=== PATIENT | male | born 1985 | race Asian ===

== ENCOUNTER 2018-02-09 19:03 | Emergency (ER) | payer SELFPAY ==
[~2018-02-09] VITALS: Ht 172.7 cm; Wt 74.8 kg
[2018-02-09 19:10] VITALS: BP_SYST 113
--- NOTE | 2018-02-09 19:10 | NUR ---
Placed in room [address] recording monitor, blood pressure machine and pulse oximeter. To gown for exam. Side rails up. Report given to DIANNE Iverson.
--- NOTE | 2018-02-09 19:25 | NUR ---
Patient came in complaining of back pain. Pt says that it is a possible herniated disc. Patient states that the pain occured about two and a half weeks ago. He said that he tried accupuncture and helped but only temporarily. Patient said that he leaned back on his chair today and when he leaned back he felt his back have a spasm. Patient says he only finds relief when he lays down straight, but when he twist, moves or gets up, the pain is 8/10. Denies n/v/d. No other complaints/injuries noted.
--- NOTE | 2018-02-09 19:30 | NUR ---
ER at bedside examining patient.
[2018-02-09] MEDS ORDERED: HYDROmorphone 1 MG INJ. 1 MG/ML AMPUL IVP ONE (20:45)
[2018-02-09] MEDS ORDERED: DEXAMETHASONE SOD PHOSPHATE 10 MG/ML VIAL IVP ONE (20:45)
[2018-02-09] MEDS ORDERED: KETOROLAC TROMETHAMINE 30 MG VIAL IVP ONE (20:45)
[2018-02-09] MEDS ORDERED: MORPHINE 4 MG/ML INJ. SYRINGE IVP ONE (21:00)
[2018-02-09] MEDS ORDERED: ONDANSETRON HCL 4 MG/2 ML VIAL IVP ONE (21:00)
--- NOTE | 2018-02-09 21:00 | NUR ---
# 20 gauge angiocath placed to L forearm. Use of asceptic technique. Opsite placed over site. Blood return noted. Blood for lab drawn from site. Flushed with 10 cc of normal saline. No evidence of infiltration noted. Patient tolerated well.
--- NOTE | 2018-02-09 21:16 | NUR ---
Medications were given, pt tolerated well. No adverse reaction, will continue to monitor.
--- NOTE | 2018-02-09 21:55 | NUR ---
Patient states that pain level is 3/10 with exertion. Will cont. to monitor.
[2018-02-09 22:35] VITALS: BP_SYST 113
--- NOTE | 2018-02-09 22:35 | NUR ---
Patient given written and verbal discharge instructions and verbalizes understanding. ER MD Dr. Galo discussed with patient the results and treatment provided. Patient in stable condition. ID arm band removed. IV catheter removed intact and dressing applied, no active bleeding. Rx of [place] and Ibuprofen given. Patient educated on pain management and to follow up with PMD within 2-3 days. Pain Scale 3/10, tolerable for patient. Opportunity for questions provided and answered. Medication side effect fact sheet provided.
== END 2018-02-09 22:35 | disposition home or self-care (01) ==
LOC: SED 19:03
DX: M54.5 Low back pain (principal)
CPT/HCPCS: 96374; 96375; 99284; J1100; J1885; J2270; J2405; J1170